=== PATIENT | female | born 1995 | race Two or more races ===

== ENCOUNTER 2017-04-15 08:00 | Emergency (ER) | payer OTHER ==
[~2017-04-15] VITALS: Ht 157.5 cm; Wt 50.3 kg
[2017-04-15 08:11] VITALS: BP 127/76
== END 2017-04-15 08:35 | disposition home or self-care (01) ==
LOC: ER 08:02
DX: R51 Headache (principal); Z88.8 Allergy status to other drugs, medicaments and biological substances
CPT/HCPCS: 99281; A4606; Z7610; Z7502

== ENCOUNTER 2021-05-26 22:58 | Emergency (ER) | payer SELFPAY ==
[~2021-05-26] VITALS: Ht 157.5 cm; Wt 53.1 kg
[2021-05-26 23:32] VITALS: BP 160/107
--- NOTE | 2021-05-26 23:33 | NUR ---
Michael moy in [facility] - 05/26/21 at 2335 by ADITHYA Patient discharged to home in stable condition. Written and verbal after care instructions given. Patient verbalizes understanding of instruction.
--- NOTE | 2021-05-26 23:35 | NUR ---
BIBS C/O ON AND OFF HEADACHE SINCE Apr S/P HITTING HITTING ON BRIDGE -KO +NAUSEA +DIZZY. PATIENT ALERT AND ORIENTED X4. AMBULATORY WITH NON LABORED BREATHING.
[2021-05-26] MEDS ORDERED: SUMATRIPTAN SUCCINATE 6 MG/0.5 ML VIAL SQ ONE (23:51)
[2021-05-27] MEDS ORDERED: SUMATRIPTAN SUCCINATE 6 MG/0.5 ML VIAL SQ ONE
[2021-05-27] MEDS ORDERED: PROCHLORPERAZINE MALEATE 10 MG TABLET PO ONE
[2021-05-27] MEDS ORDERED: SUMA100T16 PO (01:02)
[2021-05-27] MEDS ORDERED: PROC-11 PO (01:02)
== END 2021-05-27 01:13 | disposition home or self-care (01) ==
LOC: ER 23:05
DX: R51.9 Headache, unspecified (principal); F07.81 Postconcussional syndrome; Z79.899 Other long term (current) drug therapy; Z91.018 Allergy to other foods
CPT/HCPCS: 70450; 96372; 99284; J3030